=== PATIENT | female | born 1980 | race Caucasian/White ===

== ENCOUNTER 2017-05-18 21:53 | Inpatient (IN) | payer OTHER ==
[~2017-05-18] VITALS: Ht 165.1 cm; Wt 119.8 kg
[~2017-05-18 21:53] MED LIST: ATIVAN1 MG PO; AZURETTE 28 DA1 EACH PO; CRANBERRY 12,61 EACH PO; CRANBERRY400 M1 PO; DITROPAN XL10 MG PO; FLEXERIL10 MG PO; IMITREX100 MG PO; IMITREX4 MG/0.5 M SC; INDERAL80 MG PO; LEXAPRO20 MG PO; MAGNESIUM100 MG PO; NORCO 7.5/321 TABLET PO; PHENTERMINE HCL15 MG PO; PRILOSEC OTC20 MG PO; PRILOSEC20 MG PO; PROTONIX20 MG PO; PYRIDIUM100 MG PO; RIBOFLAVIN400 MG PO; TOPAMAX100 MG PO; TROKENDI XR200 MG PO; VICODIN,LORT1 TABLET PO; WELLBUTRIN XL300 MG PO; XANAX1 MG PO; ZOLOFT100 MG PO
[2017-06-01] MEDS ORDERED: PROMETHAZINE HC25 M1 PO (08:50)
[2017-06-02 08:51] VITALS: BP 126/54
[2017-06-02 18:18] VITALS: BP 122/67
[2017-06-02 20:00] VITALS: BP 113/72
[2017-06-02 23:59] VITALS: BP 110/58
[2017-06-03 04:13] VITALS: BP 108/56
[2017-06-03 07:25] VITALS: BP 108/57
[2017-06-03] MEDS ORDERED: CYCLOBENZAPRINE10 MG PO (08:01)
[2017-06-03] MEDS ORDERED: PROMETHAZINE HC25 M1 PO (10:06)
[2017-06-03] MEDS ORDERED: HYDROMORPHONE HC4 MG PO (10:06)
== END 2017-06-03 14:09 | disposition home or self-care (01) | DRG 460 ==
LOC: ENRESERV 21:53 → 2SOUTH 05-19 08:41 → SDC 05-19 11:56 → EDSTATUS 05-19 11:56 → 2SOUTH 05-19 11:57 → ENRESERV 05-19 13:10 → CANRESERV 05-19 13:10 → 2SOUTH 05-19 15:52 → ENRESERV 06-01 21:45 → 2SOUTH 06-02 07:40 → 3EAST 06-02 07:40 → 2SOUTH 06-02 08:47 → ENRESERV 06-02 09:41 → 2SOUTH 06-02 12:34 → 3EAST 06-02 18:06
PROC: 0SG307J Fusion of Lumbosacral Joint with Autologous Tissue Substitute, Posterior Approach, Anterior Column, Open Approach (ICD-10-PCS; principal; 2017-06-02)
DX: M51.16 Intervertebral disc disorders with radiculopathy, lumbar region (principal); Z68.41 Body mass index [BMI] 40.0-44.9, adult; M48.061 Spinal stenosis, lumbar region without neurogenic claudication; M46.86 Other specified inflammatory spondylopathies, lumbar region; Z98.1 Arthrodesis status; M51.17 Intervertebral disc disorders with radiculopathy, lumbosacral region; E66.9 Obesity, unspecified; M51.37 Other intervertebral disc degeneration, lumbosacral region; M51.26 Other intervertebral disc displacement, lumbar region; F43.23 Adjustment disorder with mixed anxiety and depressed mood; G25.81 Restless legs syndrome; G43.909 Migraine, unspecified, not intractable, without status migrainosus
CPT/HCPCS: 36415; 72100; 76000; 80048; 81003; 85025; 86850; 86900; 86901; 94799; C1713; J0131; J0330; J0690; J1100; J1170; J2250; J2405; J2550; J3010; J3370; J3480; Q0175; S0020